=== PATIENT | male | born 1995 | race Caucasian/White ===

== ENCOUNTER 2025-04-10 20:00 | Emergency (ER) | payer OTHER ==
[~2025-04-10] VITALS: Ht 182.9 cm; Wt 74.8 kg
[~2025-04-10 20:00] MED LIST: HYDACE5 PO
[2025-04-10] MEDS ORDERED: Ketorolac Tromethamine 30mg Vial IM ONE (22:15)
== END 2025-04-10 22:21 | disposition home or self-care (01) ==
LOC: ER 20:00
DX: F11.23 Opioid dependence with withdrawal (principal); Z79.899 Other long term (current) drug therapy
CPT/HCPCS: 71045; 96372; 99283-25; A9270; J1885